=== PATIENT | male | born 1985 | race Caucasian/White ===

== ENCOUNTER 2016-10-09 15:01 | Inpatient (IN) | payer OTHER ==
[~2016-10-09] VITALS: Ht 182.9 cm; Wt 78.4 kg
[~2016-10-09 15:01] MED LIST: ESCITALOPRAM OX10 MG PO
[2016-10-09 16:02] LABS: EOSINOPHIL (%) 0.5 % (0-5); HEMATOCRIT 38.3 % (38.0-50.0); IMMATURE GRANULOCYTE (%) 0.4 % (0.0-0.7); INSTRUMENT ABS NEUTROPHIL CT 5.1 K/uL; LYMPHOCYTE COUNT 1.7 K/uL (1.0-2.8); MCH 31.1 PG (29.0-34.0); MCHC 34.5 G/DL (30.0-36.0); MCV 90.1 FL (86-99); MONOCYTE (%) 12.7 % (3-12); NEUTROPHIL COUNT 5.1 K/uL (1.8-6.4); PLATELET COUNT 194 K/uL (156-360); RBC DIS.WIDTH-SD 43.2 % (39-53); RED BLOOD COUNT 4.25 M/uL (4.00-5.50); WHITE BLOOD COUNT 7.9 K/uL (4.1-10.2)
[2016-10-09 16:10] LABS: CHLORIDE 101 mEq/L (99-109); POTASSIUM 3.5 mEq/L (3.7-5.4); SODIUM 139 mEq/L (136-147)
[2016-10-09 16:11] LABS: MAGNESIUM 1.8 mg/dL (1.3-2.7)
[2016-10-09 16:12] LABS: GLUCOSE 109 mg/dL (70-99)
[2016-10-09 16:13] LABS: ANION GAP 13 MEQ/L (2-14)
[2016-10-09 16:15] LABS: SERUM ETHYL ALCOHOL < 10 mg/dL
[2016-10-09 16:16] LABS: GFR ESTIMATE (CALCULATED) > 59 mL/min/
[2016-10-09 16:18] LABS: UREA NITROGEN (BUN) 11 mg/dL (9-23)
[2016-10-09 16:19] LABS: SALICYLATE < 5.0 MG/DL (15-30)
[2016-10-09 19:54] VITALS: BP 130/59
[2016-10-09 20:10] VITALS: BP 130/59
[2016-10-10 07:54] VITALS: BP 125/59
[2016-10-10 12:45] LABS: ALKALINE PHOSPHATASE 55 IU/L (3-129); ANION GAP 10 MEQ/L (2-14); CHLORIDE 104 MEQ/L (99-109); GFR ESTIMATE (CALCULATED) > 59 mL/min/; GLUCOSE 87 mg/dL (70-99); SAMPLE HEMOLYSIS CHECK 0; SAMPLE ICTERIC CHECK 0; SAMPLE LIPEMIA CHECK 0; SODIUM 139 MEQ/L (136-147); TOTAL BILIRUBIN 0.6 MG/DL (0.0-1.0); UREA NITROGEN (BUN) 13 mg/dL (9-23)
[2016-10-10 13:08] LABS: POTASSIUM 4.5 MEQ/L (3.7-5.4)
[2016-10-10 15:47] VITALS: BP 104/59
[2016-10-10 20:41] VITALS: BP 112/56
[2016-10-11 07:42] VITALS: BP 117/63
[2016-10-11 15:24] VITALS: BP 113/53
[2016-10-11 22:12] VITALS: BP 115/55
[2016-10-12 07:46] VITALS: BP 99/52
[2016-10-12 15:37] VITALS: BP 133/68
[2016-10-13 07:03] VITALS: BP 132/63
[2016-10-13 15:36] VITALS: BP 129/68
[2016-10-14 07:21] VITALS: BP 113/53
[2016-10-14] MEDS ORDERED: DULOXETINE HCL30 MG PO (09:00)
== END 2016-10-14 13:30 | disposition other institution (70) | DRG 897 ==
LOC: EME 15:01 → 1WEST 18:18 → EDOF 18:18 → 1WEST 19:34
PROVIDERS: Emergency Medicine; Psychiatry & Neurology Psychiatry
DX: F11.24 Opioid dependence with opioid-induced mood disorder (principal); R45.851 Suicidal ideations; F11.23 Opioid dependence with withdrawal; G89.29 Other chronic pain; M54.2 Cervicalgia; J45.909 Unspecified asthma, uncomplicated; F17.203 Nicotine dependence unspecified, with withdrawal; Z91.5 Personal history of self-harm; Z81.8 Family history of other mental and behavioral disorders; Z88.0 Allergy status to penicillin; Z88.5 Allergy status to narcotic agent
CPT/HCPCS: 80048; 80053; 83735; 85025; 90839; 97165 GO; 99281; 99285; G0480; J7030; Q0169; Q0177